=== PATIENT | female | born 1985 | race Caucasian/White ===

== ENCOUNTER 2016-11-01 23:22 | Emergency (ER) | payer OTHER ==
--- NOTE | ~2016-11-01 | CR109 ---
[facility] A Service of [facility] & [facility] RADIOLOGY TEXT RESULTS PATIENT: MARIA DEL ROSARIO COSTELLO LOCATION: SED : 87 UNIT #: [id number] AGE: [address]: Ginny Harman SEX: F ORDER DR: [id number] [address] [id number] E MR#: [id number] Acc #: [id number] NAME: MARIA DEL ROSARIO COSTELLO : 1985 SEX: F STUDY DATE/TIME: 11/01/2016 23:41 UNIT: SED ROOM: STUDY DESCRIPTION: CR Finger 2 View 2nd Rt Attending Physician: Ginny Harman Pa-C Ordering Physician: Garo Burgess M.D. Primary Care Physician: Wesley Umaña M.D. MEDICAL IMAGING REPORT This report is preliminary unless electronic signature is present. EXAM Right second finger, 3 views COMPARISON None. INDICATION 31-year-old female with right finger pain after laceration while opening a can tonight. FINDINGS Bones are anatomically aligned. No acute fractures. No subcutaneous gas or radiopaque foreign body. IMPRESSION Normal exam. No radiopaque foreign body. Dictated by... Eliseo Pearson M.D. THIS IS AN ELECTRONICALLY VERIFIED REPORT Eliseo Pearson M.D. at 11/02/2016 8:20 AM WINNIE/kain TD: 11/02/2016 08:17 JOB #: [id number] MEDICAL IMAGING REPORT
[~2016-11-01 23:22] MED LIST: ACETAMINOPHEN; ALBUTEROL 0.5ML; ALBUTEROL17 GM INH; AZITHROMYCIN250 MG PO; BACTROBAN15 GM TOP; BACTROBAN22 GM TP; BENADRYL; CORTISPORI10 ML OTIC AS; CORTISPORIN-TC10 M1 AS; KEFLEX500 M1 PO; LOMOTIL TABLET1 TAB PO; LORTAB 5/500 TA1 TA1 PO; NAPROSYN500 MG PO; NAPROXEN SODIU500 MG PO; OMEPRAZOLE20 M2 PO; OMNICEF300 MG PO; PHENERGAN SUPP25 M1 PR; PHENERGAN25 M1 PO; PHENERGAN25 MG PO; PREDNISONE PO; PRENATAL VITAMI1 TA3 PO; TYLENOL #3 PO; VIBRAMYCIN100 M1 PO; VOLTAREN50 MG PO; ZITHROMAX PO; ZOFRAN ODT4 MG DOB; ZOFRAN ODT4 MG PO; ZYRTEC
== END 2016-11-02 00:56 | disposition home or self-care (01) ==
LOC: SED 23:22
DX: S61.411A Laceration without foreign body of right hand, initial encounter (principal); J45.909 Unspecified asthma, uncomplicated; D64.9 Anemia, unspecified; F17.200 Nicotine dependence, unspecified, uncomplicated; Z23 Encounter for immunization; W26.8XXA Contact with other sharp object(s), not elsewhere classified, initial encounter; Y92.009 Unspecified place in unspecified non-institutional (private) residence as the place of occurrence of the external cause
CPT/HCPCS: 12001; 73140; 90471; 90715; 99283

== ENCOUNTER → 2017-02-14 | Outpatient (CLI) | payer OTHER ==
--- NOTE | ~2017-02-14 | US24 ---
[facility] A Service of [facility] & [facility] RADIOLOGY TEXT RESULTS PATIENT: MARIA DEL ROSARIO COSTELLO LOCATION: [facility] : 86 UNIT #: [id number] AGE: [address]: ELEN FANG APRN SEX: F ORDER DR: [id number] [facility]. [place], [place] [address] [id number] O MR#: [id number] Acc #: [id number] NAME: MARIA DEL ROSARIO COSTELLO : 1985 SEX: F STUDY DATE/TIME: 02/14/2017 13:21 UNIT: [facility] ROOM: STUDY DESCRIPTION: US Breast Unilateral Attending Physician: Elen Fang Aprn Referring Physician: Elen Fang Aprn Ordering Physician: Elen Fang Aprn Primary Care Physician: Rubia Vargas A.P.R.N. MEDICAL IMAGING REPORT This report is preliminary unless electronic signature is present EXAM Targeted diagnostic left breast ultrasound, 02/14/2017 HISTORY 31-year-old female complains of palpable abnormality in the 4 o'clock left breast for one week. COMPARISON None FINDINGS Targeted imaging was performed of the lateral left breast from the 2 o'clock to 4 o'clock axis. The site of patient's palpable complaint lies at the 2 o'clock axis, where there is a ridge of dense but normal-appearing fibroglandular tissue. However, there is incidental finding at the 4 o'clock axis of the left breast 10.0 cm from the nipple of a solid oval hypoechoic 1.3 x 0.8 cm nodule with enhanced acoustic transmission, without hypervascularity, without architectural distortion and without microcalcification. This is thought most likely to represent a benign fibroadenoma, and is not thought to correspond to the patient's site of palpable complaint. IMPRESSION 1. A 1.2 cm solid nodule is seen at the 4 o'clock axis of the left breast, with sonographic features most compatible with benign finding such as a fibroadenoma. Ultrasound-guided core biopsy is recommended at this time. Patient is not on blood thinning agents. This can be scheduled by the referring physician's office at the patient nearest convenience. I have contacted the breast doggy daycare activities director, Christy, who is currently contacting the referring physician's office to schedule this procedure. Of particular note, the site of patient's palpable complaint has no suspicious abnormality and is thought to correspond to a dense but normal band of fibroglandular tissue. [facility] A Service of [facility] RADIOLOGY TEXT RESULTS PATIENT: MARIA DEL ROSARIO COSTELLO LOCATION: [facility] : 86 UNIT #: [id number] AGE: [address]: ELEN FANG APRN SEX: F ORDER DR: 2. The findings and recommendations were discussed in great detail with the patient today in the radiology department. She verbalized understanding and wished to proceed. Patients over the age of 40 are entered into a reminder system with target due date for the next mammogram. A result letter will also be sent to the patient. Left Breast BIRADS 4 Suspicious Abnormality; Biopsy Should Be Considered Dictated by... Anna Freeman M.D. THIS IS AN ELECTRONICALLY VERIFIED REPORT Anna Freeman M.D. at 02/15/2017 9:00 AM SHERITA/carlos TD: 02/14/2017 15:08 JOB #: [id number] MEDICAL IMAGING REPORT Page 1 of 1 COPY
== END | disposition home or self-care (01) ==
LOC: CWCC 02-13 11:00
DX: N63 Unspecified lump in breast (principal)
CPT/HCPCS: 76641

== ENCOUNTER → 2017-02-24 | Day surgery (SDC) | payer OTHER ==
--- NOTE | ~2017-02-24 | US200 ---
[facility] A Service of [facility] & [facility] RADIOLOGY TEXT RESULTS PATIENT: MARIA DEL ROSARIO COSTELLO LOCATION: [facility] : 86 UNIT #: [id number] AGE: [address]: ELEN FANG APRN SEX: F ORDER DR: [id number] [facility] [address] [place], [place] [address] [id number] O MR#: [id number] Acc #: [id number] NAME: MARIA DEL ROSARIO COSTELLO : 1985 SEX: F STUDY DATE/TIME: 02/24/2017 14:08 UNIT: [facility] ROOM: STUDY DESCRIPTION: US Breast Guided Bx 1st Lesion Attending Physician: Elen Fang Aprn Referring Physician: Elen Fang Aprn Ordering Physician: Elen Fang Aprn Primary Care Physician: Rubia Vargas A.P.R.N. MEDICAL IMAGING REPORT This report is preliminary unless electronic signature is present EXAM Ultrasound-guided breast biopsy. FINDINGS Final pathology of the lesion at the 4 o'clock position of the left breast, approximate 10 cm from nipple. The pathology shows a fibroepithelial neoplasm, consistent with a fibroadenoma. This is concordant with the imaging appearance. Dictated by... Gianfranco Lara M.D. THIS IS AN ELECTRONICALLY VERIFIED REPORT Gianfranco Lara M.D. at 03/05/2017 10:28 PM ELA/samuel TD: 03/05/2017 10:28 JOB #: [id number] MEDICAL IMAGING REPORT Page 1 of 1 COPY
--- NOTE | ~2017-02-24 | MY14 ---
[facility] A Service of [facility] & [facility] RADIOLOGY TEXT RESULTS PATIENT: MARIA DEL ROSARIO COSTELLO LOCATION: [facility] : 86 UNIT #: [id number] AGE: [address]: ELEN FANG APRN SEX: F ORDER DR: [id number] [facility] [address] [facility] [place] [facility]. [place], [place] [address] [id number] O MR#: [id number] Acc #: [id number] NAME: MARIA DEL ROSARIO COSTELLO : 1985 SEX: F STUDY DATE/TIME: 02/24/2017 14:46 UNIT: [facility] ROOM: STUDY DESCRIPTION: MY Post Bx Film Attending Physician: Elen Fang Aprn Referring Physician: Elen Fang Aprn Ordering Physician: Elen Fang Aprn Primary Care Physician: Rubia Vargas A.P.R.N. MEDICAL IMAGING REPORT This report is preliminary unless electronic signature is present EXAM Left breast mass status post ultrasound-guided core needle biopsy and clip deployment. FINDINGS CC and ML views of the left breast were obtained. The biopsy clip was deployed within the small mass in the lateral left breast. Mass is at the 3 o'clock position. IMPRESSION Successful clip deployment in the left breast mass status post ultrasound-guided core biopsy. Dictated by... Gianfranco Lara M.D. THIS IS AN ELECTRONICALLY VERIFIED REPORT Gianfranco Lara M.D. at 02/27/2017 3:00 PM ELA/mickie TD: 02/24/2017 22:35 JOB #: [id number] MEDICAL IMAGING REPORT Page 1 of 1 COPY
== END | disposition home or self-care (01) ==
LOC: CWCC 12:54
DX: D49.3 Neoplasm of unspecified behavior of breast (principal)
CPT/HCPCS: 88305; G0204